=== PATIENT | female | born 2000 | race Caucasian/White ===

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

== ENCOUNTER 2020-01-06 20:16 | Emergency (ER) | payer MEDICAID ==
[~2020-01-06] VITALS: Ht 160 cm; Wt 104.0 kg
[2020-01-06] MEDS ORDERED: SODIUM CHLORIDE 0.9% 1,000 ML IV ONE (21:15)
[2020-01-06] MEDS ORDERED: AZITHROMYCIN 500 MG TABLET PO ONE (22:30)
[2020-01-06] MEDS ORDERED: FLUCONAZOLE 100MG TABLET PO ONE (22:30)
[2020-01-06] MEDS ORDERED: CEFTRIAXONE SODIUM 250 MG/VIAL IM ONE (22:30)
[2020-01-06 23:02] LABS: CLARITY URINE CLOUDY (CLEAR); COLOR URINE DARK YELLOW (YELLOW); KETONES URINE 1+ (NEGATIVE); LEUKOCYTE ESTERASE URINE 1+ (NEGATIVE); NITRITE URINE NEGATIVE (NEGATIVE); OCCULT BLOOD URINE NEGATIVE (NEGATIVE); PH URINE 5.5 (4.5-8.0); PROTEIN URINE TRACE (NEGATIVE); SPECIFIC GRAVITY URINE 1.031 (1.005-1.030)
[2020-01-06] MEDS ORDERED: FLUCONAZOLE 150MG TABLET PO NR (23:15)
[2020-01-06] MEDS ORDERED: ONDANSETRON HCL 4MG/2ML INJ IV ONE (23:45)
[2020-01-07 01:16] LABS: CHLORIDE 108 mEq/L (98-107); HEMOGLOBIN 13.4 g/dL (12.0-16.0); MEAN CORPUSCULAR HEMOGLOBIN 25.6 pg (28.0-32.0); MEAN CORPUSCULAR VOLUME 79.9 fL (81.0-99.0); PLATELET 277 x1000/uL (130-400); RED BLOOD CELL COUNT 5.26 mill/uL (4.2-5.4); RED CELL DISTRIBUTION WIDTH 16.1 % (11.6-14.6)
[2020-01-07 03:56] VITALS: BP 115/59
== END 2020-01-07 04:01 | disposition home or self-care (01) ==
LOC: ER 20:16
DX: N39.0 Urinary tract infection, site not specified (principal); R56.9 Unspecified convulsions
CPT/HCPCS: 36415; 80053; 81003; 81025; 83690; 85027; 93005; 96361; 96372; 96374; 99284; J0696; J2405; J7030